=== PATIENT | female | born 1980 | race Caucasian/White ===

== ENCOUNTER 2025-01-02 01:13 | Emergency (ER) | payer OTHER ==
[2025-01-02] MEDS: Diphtheria,Pertussis(Acell),Tetanus Vaccine 0.5 ML Syringe IM ONE (02:17)
[2025-01-02] MEDS: Lidocaine 1% with EPINEPHrine 1:100,000 10 ML MDV INJECT ONE (02:18)
[2025-01-02] MEDS: Lidocaine 1% 10 ML MDV INJECT ONE (02:19)
== END 2025-01-02 03:14 | disposition home or self-care (01) ==
LOC: MW.ED 01:13
DX: S01.81XA Laceration without foreign body of other part of head, initial encounter (principal); F17.210 Nicotine dependence, cigarettes, uncomplicated; Z23 Encounter for immunization; W01.0XXA Fall on same level from slipping, tripping and stumbling without subsequent striking against object, initial encounter; Y93.89 Activity, other specified
CPT/HCPCS: 12011; 90471; 90715; 99283; 99283-25